=== PATIENT | male | born 1990 | race Two or more races ===

== ENCOUNTER 2017-03-19 13:44 | Emergency (ER) | payer MEDICAID ==
[~2017-03-19] VITALS: Ht 165.1 cm; Wt 83.0 kg
[2017-03-19 15:43] VITALS: BP 153/85
== END 2017-03-19 15:55 | disposition home or self-care (01) ==
LOC: ER 13:44
DX: S29.011A Strain of muscle and tendon of front wall of thorax, initial encounter (principal); X58.XXXA Exposure to other specified factors, initial encounter; Y93.89 Activity, other specified; Y92.89 Other specified places as the place of occurrence of the external cause; Y99.8 Other external cause status
CPT/HCPCS: 93005